=== PATIENT | female | born 1995 | race Caucasian/White ===

== ENCOUNTER 2020-09-20 08:20 | Day surgery (SDC) | payer BC ==
[2020-09-18 13:17] VITALS: BMI 33.2
[2020-09-20] MEDS ORDERED: LIDOCAINE HCL/PF 2% SDV 5ML VIAL ONE (08:45)
[2020-09-20] MEDS ORDERED: PROPOFOL 20 ML ONE ×3 (08:45)
[2020-09-20 10:46] VITALS: BP 110/65; PULSE 81; TEMP 98
== END 2020-09-20 10:15 | disposition home or self-care (01) ==
LOC: FASU-ENDO 08:20
PROVIDERS: ATTEND Internal Medicine Gastroenterology
PROC: 0DBL8ZX Excision of Transverse Colon, Via Natural or Artificial Opening Endoscopic, Diagnostic (ICD-10-PCS; 2020-09-20)
PROC: 0DBP8ZX Excision of Rectum, Via Natural or Artificial Opening Endoscopic, Diagnostic (ICD-10-PCS; 2020-09-20)
PROC: 0DBF8ZX Excision of Right Large Intestine, Via Natural or Artificial Opening Endoscopic, Diagnostic (ICD-10-PCS; 2020-09-20)
PROC: 0DBM8ZX Excision of Descending Colon, Via Natural or Artificial Opening Endoscopic, Diagnostic (ICD-10-PCS; principal; 2020-09-20 09:19)
DX: K64.1 Second degree hemorrhoids (principal)
CPT/HCPCS: 84703; 88305-TC